=== PATIENT | female | born 1960 | race Caucasian/White ===

== ENCOUNTER 2016-10-17 15:02 | Inpatient (IN) | payer OTHER ==
[~2016-10-17] VITALS: Ht 165.1 cm; Wt 96.4 kg
[~2016-10-17 15:02] MED LIST: ALPRAZOLAM0.5 MG PO; AMARYL2 MG PO; AMARYL4 MG PO; AMBIEN10 MG PO; AMITRIPTYLINE H25 MG PO; ANIMAL CHEWS1 EACH PO; ASPIRIN325 MG PO; ATARAX,VISTARIL25 MG PO; CALTRATE 600600 MG PO; CHEWABLE MULTI1 EACH PO; CIPROFLOXACIN500 M1 PO; CLARITIN10 M3 PO; CLARITIN10 MG PO; COLACE100 MG PO; DEMADEX20 MG PO; ELAVIL25 MG PO; ENDOCET 10-3251 EACH PO; Ecotrin PO; FLUTICASONE PRO16 GM BOTH NARES; GLIMEPIRIDE2 MG PO; Glucotrol PO; HYDROCODON-ACE1 EAC7 PO; K-DUR10 MEQ PO; LEVOFLOXACIN750 MG PO; LEVOTHYROXINE125 MCG PO; MICRO-K10 ME2 PO; NEXIUM40 MG PO; Naprosyn PO; OPANA ER20 MG PO; PERCOCET 10/1 TABLET PO; PREDNISONE20 MG PO; PROVENTIL HFA6.7 GM IH; Percocet 10/325,Endo PO; SIMVASTATIN80 MG PO; STOOL SOFTENER100 M1 PO; STOOL SOFTENER100 MG PO; SYNTHROID125 MCG PO; TOVIAZ PO; Tylenol Regular Stre PO; VIBRAMYCIN100 MG PO; VITAMIN E400 UNI6 PO; WESTCORT15 G1 TP; XANAX0.5 MG PO; ZOCOR80 MG PO; ZOLPIDEM TARTRA10 MG PO; Zocor PO
[2016-10-17 15:57] LABS: EOSINOPHIL (%) 1.3 % (0-5); EOSINOPHIL COUNT 0.2 K/uL (0-0.3); HEMATOCRIT 40.4 % (36.0-46.0); IMMATURE GRANULOCYTE COUNT 1.2 K/uL; LYMPHOCYTE COUNT 2.3 K/uL (1.0-2.8); MCHC 33.7 G/DL (30.0-36.0); MCV 86.1 FL (83-99); MEAN PLAT.VOLUME 11.9 uM^3 (9.5-12.4); MONOCYTE (%) 6.1 % (3-12); MONOCYTE COUNT 0.7 K/uL (0-0.8); NEUTROPHIL (%) 71.7 % (45-76); NEUTROPHIL COUNT 8.6 K/uL (1.8-6.4); PLATELET COUNT 273 K/uL (156-360); RBC DIS.WIDTH-CV 13.2 % (11.8-14.6); RBC DIS.WIDTH-SD 40.3 % (39-53); RED BLOOD COUNT 4.69 M/uL (3.80-5.20)
[2016-10-17 15:58] LABS: WHITE BLOOD COUNT 11.9 K/uL (4.1-10.2)
[2016-10-17 16:07] LABS: CHLORIDE 108 mEq/L (99-109); POTASSIUM 3.9 mEq/L (3.7-5.4); SODIUM 140 mEq/L (136-147)
[2016-10-17 16:10] LABS: GLUCOSE 197 mg/dL (70-99)
[2016-10-17 16:11] LABS: ANION GAP 8 MEQ/L (2-14)
[2016-10-17 16:12] LABS: TOTAL BILIRUBIN 0.2 mg/dL (0.0-1.0)
[2016-10-17 16:13] LABS: ALKALINE PHOSPHATASE 92 IU/L (3-129); GFR ESTIMATE (CALCULATED) > 59 mL/min/
[2016-10-17 16:15] LABS: UREA NITROGEN (BUN) 17 mg/dL (9-23)
[2016-10-17 16:21] LABS: D-DIMER ELISA 0.16 mg/L FEU (< 0.57)
[2016-10-17 16:35] LABS: TROP-I INTERPRETATION NEGATIVE; TROPONIN-I < 0.01 ng/mL (0.0-0.30)
[2016-10-17] MEDS ORDERED: CLARITIN,ALAVAR10 MG PO (17:17)
[2016-10-17] MEDS ORDERED: OXYCODONE HCL15 MG PO (17:17)
[2016-10-17] MEDS ORDERED: ELAVIL50 MG PO (17:18)
[2016-10-17] MEDS ORDERED: AMARYL2 MG PO (17:19)
[2016-10-17] MEDS ORDERED: CALCIUM 500 MG1 EACH PO (17:20)
[2016-10-17] MEDS ORDERED: INVOKAMET 50-11 EACH PO (17:20)
[2016-10-17] MEDS ORDERED: OMEPRAZOLE40 M1 PO (17:20)
[2016-10-17] MEDS ORDERED: CYANOCOBALAM1000 MCG PO (17:21)
[2016-10-17] MEDS ORDERED: LEVOTHYROXINE100 MCG PO (17:22)
[2016-10-17 21:45] VITALS: BP 123/90
[2016-10-17 21:57] LABS: POINT-OF-CARE METER ID UU14162508
[2016-10-17 23:22] VITALS: BP 133/58
[2016-10-18] VITALS (7 sets, daily range): BP systolic 106–138; BP diastolic 56–78
[2016-10-18 07:01] LABS: POINT-OF-CARE METER ID UU14162508
[2016-10-18 21:47] LABS: POINT-OF-CARE METER ID UU14162508
[2016-10-19 06:44] LABS: POINT-OF-CARE METER ID UU14162508
[2016-10-19 07:04] LABS: ALKALINE PHOSPHATASE 78 IU/L (3-129); ANION GAP 6 MEQ/L (2-14); CHLORIDE 104 MEQ/L (99-109); GFR ESTIMATE (CALCULATED) > 59 mL/min/; GLUCOSE 160 mg/dL (70-99); POTASSIUM 4.4 MEQ/L (3.7-5.4); SAMPLE HEMOLYSIS CHECK 0; SAMPLE ICTERIC CHECK 0; SAMPLE LIPEMIA CHECK 0; SODIUM 138 MEQ/L (136-147); TOTAL BILIRUBIN 0.4 MG/DL (0.0-1.0); UREA NITROGEN (BUN) 16 mg/dL (9-23)
[2016-10-19 07:10] LABS: HEMATOCRIT 38.8 % (36.0-46.0); MCH 29.3 PG (29.0-34.0); MCHC 32.2 G/DL (30.0-36.0); MEAN PLAT.VOLUME 12.9 uM^3 (9.5-12.4); PLATELET COUNT 262 K/uL (156-360); RBC DIS.WIDTH-CV 13.6 % (11.8-14.6); RBC DIS.WIDTH-SD 44.8 % (39-53); RED BLOOD COUNT 4.27 M/uL (3.80-5.20); WHITE BLOOD COUNT 10.1 K/uL (4.1-10.2)
[2016-10-19 07:11] LABS: MCV 90.9 FL (83-99)
[2016-10-19 07:20] VITALS: BP 120/67
[2016-10-19 14:50] VITALS: BP 141/72
[2016-10-19 23:32] VITALS: BP 138/65
[2016-10-20 07:05] VITALS: BP 139/67
[2016-10-20 12:25] VITALS: BP 152/81
[2016-10-20 15:30] VITALS: BP 160/82
[2016-10-20 15:55] VITALS: BP 154/82
[2016-10-20 21:33] LABS: POINT-OF-CARE METER ID UU14162508
[2016-10-21] VITALS: BP 128/60
[2016-10-21 06:58] LABS: POINT-OF-CARE METER ID UU14162508
[2016-10-21 07:08] LABS: HEMATOCRIT 39.5 % (36.0-46.0); MCH 29.2 PG (29.0-34.0); MCHC 32.2 G/DL (30.0-36.0); MCV 90.8 FL (83-99); MEAN PLAT.VOLUME 12.9 uM^3 (9.5-12.4); PLATELET COUNT 271 K/uL (156-360); RBC DIS.WIDTH-CV 13.2 % (11.8-14.6); RBC DIS.WIDTH-SD 44.1 % (39-53); RED BLOOD COUNT 4.35 M/uL (3.80-5.20); WHITE BLOOD COUNT 11.6 K/uL (4.1-10.2)
[2016-10-21 07:43] VITALS: BP 124/81
[2016-10-21 07:45] LABS: ALKALINE PHOSPHATASE 81 IU/L (3-129); ANION GAP 7 MEQ/L (2-14); CHLORIDE 99 MEQ/L (99-109); GFR ESTIMATE (CALCULATED) > 59 mL/min/; GLUCOSE 125 mg/dL (70-99); POTASSIUM 4.1 MEQ/L (3.7-5.4); SAMPLE HEMOLYSIS CHECK 0; SAMPLE ICTERIC CHECK 0; SAMPLE LIPEMIA CHECK 0; SODIUM 139 MEQ/L (136-147); UREA NITROGEN (BUN) 19 mg/dL (9-23)
[2016-10-21 08:04] LABS: TOTAL BILIRUBIN 0.3 MG/DL (0.0-1.0)
[2016-10-21 16:00] VITALS: BP 130/68
[2016-10-21 16:37] LABS: POINT-OF-CARE METER ID UU14162508
[2016-10-21 21:58] LABS: POINT-OF-CARE METER ID UU14162508
[2016-10-21 23:59] VITALS: BP 120/58
[2016-10-22 08:00] VITALS: BP 121/70
[2016-10-22 15:35] VITALS: BP 125/82
[2016-10-22] MEDS ORDERED: BACTRIM,SEPT1 TABLET PO (17:38)
[2016-10-22] MEDS ORDERED: ROBITUSSIN AC,T10 ML PO (17:38)
[2016-10-22] MEDS ORDERED: DUONEB 2.5-0.5 M3 ML AEROSOL (17:38)
[2016-10-22] MEDS ORDERED: OXYCODONE HCL5 MG PO (17:38)
[2016-10-22] MEDS ORDERED: METFORMIN HCL1000 MG PO (17:38)
[2016-10-22] MEDS ORDERED: Tums,OsCal PO (17:38)
== END 2016-10-22 20:16 | disposition home or self-care (01) | DRG 179 ==
LOC: EME → EDBD 15:02 → 2EAST 18:35 → EDOF 18:35 → 2EAST 21:25
PROVIDERS: Emergency Medicine; Internal Medicine
DX: J69.0 Pneumonitis due to inhalation of food and vomit (principal); G47.33 Obstructive sleep apnea (adult) (pediatric); I10 Essential (primary) hypertension; E11.9 Type 2 diabetes mellitus without complications; M17.9 Osteoarthritis of knee, unspecified; E66.9 Obesity, unspecified; Z68.35 Body mass index [BMI] 35.0-35.9, adult
CPT/HCPCS: 71010; 71020; 80053; 82948; 83605; 84484; 85025; 85027; 85379; 87040; 93005; 94640; 94640 76; 94760; 94799; 99202; 99281; 99285; J1650; J1815; J1956

== ENCOUNTER 2017-04-13 12:04 | Emergency (ER) | payer OTHER ==
[~2017-04-13] VITALS: Ht 165.1 cm; Wt 91.2 kg
[~2017-04-13 12:04] MED LIST changes: +BACTRIM,SEPT1 TABLET PO; +CALCIUM 500 MG1 EACH PO; +CLARITIN,ALAVAR10 MG PO; +CYANOCOBALAM1000 MCG PO; +DUONEB 2.5-0.5 M3 ML AEROSOL; +ELAVIL50 MG PO; +INVOKAMET 50-11 EACH PO; +LEVOTHYROXINE100 MCG PO; +METFORMIN HCL1000 MG PO; +OMEPRAZOLE40 M1 PO; +OXYCODONE HCL15 MG PO; +OXYCODONE HCL5 MG PO; +ROBITUSSIN AC,T10 ML PO; +Tums,OsCal PO
[2017-04-13 12:56] LABS: ADD MIUA? NO; BILIRUBIN NEGATIVE; BLOOD NEGATIVE; COLOR YELLOW ((YELLOW)); GLUCOSE (STRIP) >=500; KETONES NEGATIVE; LEUKOCYTES NEGATIVE; NITRITE NEGATIVE; PROTEIN (STRIP) NEGATIVE; SPECIFIC GRAVITY 1.032 (1.000-1.030); UCUL ADDED? NO; UROBILINOGEN 0.2 MG/DL (0.2-1.0)
[2017-04-13 14:31] LABS: BASOPHIL COUNT 0.1 K/uL (0-0.1); EOSINOPHIL COUNT 0.4 K/uL (0-0.3); HEMATOCRIT 41.8 % (36.0-46.0); IMMATURE GRANULOCYTE (%) 0.3 % (0.0-0.7); INSTRUMENT ABS NEUTROPHIL CT 4.7 K/uL; LYMPHOCYTE COUNT 2.4 K/uL (1.0-2.8); MCH 28.7 PG (29.0-34.0); MCHC 32.8 G/DL (30.0-36.0); MCV 87.4 FL (83-99); MEAN PLAT.VOLUME 11.8 uM^3 (9.5-12.4); MONOCYTE COUNT 0.5 K/uL (0-0.8); NEUTROPHIL (%) 58.4 % (45-76); NEUTROPHIL COUNT 4.7 K/uL (1.8-6.4); PLATELET COUNT 263 K/uL (156-360); RBC DIS.WIDTH-CV 12.9 % (11.8-14.6); RBC DIS.WIDTH-SD 41.3 % (39-53); RED BLOOD COUNT 4.78 M/uL (3.80-5.20)
[2017-04-13 14:48] LABS: CHLORIDE 104 mEq/L (99-109); POTASSIUM 4.6 mEq/L (3.7-5.4); SODIUM 139 mEq/L (136-147)
[2017-04-13 14:50] LABS: GLUCOSE 77 mg/dL (70-99)
[2017-04-13 14:51] LABS: ANION GAP 8 MEQ/L (2-14)
[2017-04-13 14:54] LABS: GFR ESTIMATE (CALCULATED) > 59 mL/min/
[2017-04-13 14:55] LABS: UREA NITROGEN (BUN) 12 mg/dL (9-23)
[2017-04-13 17:35] VITALS: BP 134/77
== END 2017-04-13 17:39 | disposition home or self-care (01) ==
LOC: EME 12:04
PROVIDERS: Emergency Medicine
DX: M54.5 Low back pain (principal); G89.29 Other chronic pain; E86.0 Dehydration; E11.9 Type 2 diabetes mellitus without complications; E78.5 Hyperlipidemia, unspecified; I10 Essential (primary) hypertension; Z90.710 Acquired absence of both cervix and uterus
CPT/HCPCS: 80048; 81003; 85025; 99281; 99284; J7030

== ENCOUNTER 2017-09-25 12:34 | Emergency (ER) | payer OTHER ==
[~2017-09-25] VITALS: Ht 165.1 cm; Wt 95.0 kg
[~2017-09-25 12:34] MED LIST changes: +PERCOCET 5/31 TABLET PO; +ROBAXIN750 MG PO
[2017-09-25 15:02] VITALS: BP 147/78
== END 2017-09-25 15:08 | disposition home or self-care (01) ==
LOC: EME 12:34
DX: S49.91XA Unspecified injury of right shoulder and upper arm, initial encounter (principal); M25.561 Pain in right knee; R51 Headache; W00.0XXA Fall on same level due to ice and snow, initial encounter; I10 Essential (primary) hypertension; E78.5 Hyperlipidemia, unspecified
CPT/HCPCS: 73030; 99281; 99284

== ENCOUNTER 2018-04-12 20:40 | Inpatient (IN) | payer OTHER ==
[~2018-04-12] VITALS: Ht 165.1 cm; Wt 100.9 kg
[~2018-04-12 20:40] MED LIST changes: +FLEXERIL10 MG PO; +MELOXICAM15 MG PO; +METAGLIP 5/51 TABLET PO; +MULTIPLE VITAM1 EAC1 PO; +VALIUM5 MG PO; +VITAMIN D2000 UNIT PO; +ZOLOFT50 MG PO; +ZYRTEC10 M2 PO
[2018-04-13 08:16] VITALS: BP 140/84
[2018-04-13 16:10] VITALS: BP 132/73
[2018-04-13 19:34] VITALS: BP 133/71
[2018-04-13 23:22] VITALS: BP 124/64
[2018-04-14 03:49] VITALS: BP 126/67
[2018-04-14 06:58] LABS: MCV 89.7 FL (83-99)
[2018-04-14 07:01] LABS: HEMOGLOBIN 11.2 G/DL (11.9-15.5)
[2018-04-14 07:59] VITALS: BP 150/70
[2018-04-14 11:33] VITALS: BP 141/63
[2018-04-14 16:08] VITALS: BP 124/58
[2018-04-14 19:54] VITALS: BP 164/76
[2018-04-14 23:38] VITALS: BP 160/81
[2018-04-15 06:56] LABS: HEMOGLOBIN 11.4 G/DL (11.9-15.5); MCV 89.7 FL (83-99)
[2018-04-15 07:30] VITALS: BP 154/78
[2018-04-15] MEDS ORDERED: ASPIR-LOW81 MG PO (10:40)
[2018-04-15] MEDS ORDERED: METHOCARBAMOL750 MG PO (10:43)
[2018-04-15] MEDS ORDERED: CELECOXIB200 MG PO (10:43)
[2018-04-15] MEDS ORDERED: DILAUDID2 MG PO (10:43)
== END 2018-04-15 14:08 | disposition home or self-care (01) | DRG 483 ==
LOC: ENRESERV 20:40 → 2SOUTH 04-13 05:55 → 3EAST 04-13 05:55 → 2SOUTH 04-13 09:19 → ENRESERV 04-13 09:36 → 2SOUTH 04-13 13:55 → 3EAST 04-13 16:03
PROVIDERS: Orthopaedic Surgery
PROC: 0RRJ00Z Replacement of Right Shoulder Joint with Reverse Ball and Socket Synthetic Substitute, Open Approach (ICD-10-PCS; principal; 2018-04-13)
DX: M19.011 Primary osteoarthritis, right shoulder (principal); M75.121 Complete rotator cuff tear or rupture of right shoulder, not specified as traumatic
CPT/HCPCS: 73020; 82948; 85014; 85018; 94799; C1713; J0131; J0330; J1170; J1815; J2250; J2795; J3010; J3370; J7030; J7050; J7120; Q0175